=== PATIENT | female | born 1970 | race Caucasian/White ===

== ENCOUNTER → 2017-07-23 19:34 | Outpatient (CLI) | payer BC | END | disposition home or self-care (01) | LOC: D.SLEEP 19:34 | DX: G47.33 Obstructive sleep apnea (adult) (pediatric) (principal) ==

== ENCOUNTER 2019-08-12 18:22 | Emergency (ER) | payer BC ==
[~2019-08-12] VITALS: Ht 160 cm; Wt 76.4 kg
[2019-08-12 19:54] VITALS: Ht 160 cm; Wt 76.4 kg
[2019-08-12] MEDS ORDERED: ROBAXIN500 MG PO (19:56)
[2019-08-12] MEDS ORDERED: ULTRAM50 MG PO (19:56)
[2019-08-12] MEDS ORDERED: NEURONTIN 300300 MG PO (19:57)
[2019-08-12] MEDS ORDERED: ZOCOR20 MG PO (19:57)
[2019-08-12] MEDS ORDERED: CELEXA40 MG PO (19:57)
[2019-08-12 20:46] LABS: APPEARANCE CLEAR (CLEAR); COLOR STRAW (YELLOW); SPECIFIC GRAVITY 1.005 (1.005-1.020)
[2019-08-12 20:47] LABS: BILIRUBIN NEGATIVE (NEGATIVE); GLUCOSE NEGATIVE (NEGATIVE); KETONE NEGATIVE (NEGATIVE); NITRITE NEGATIVE (NEGATIVE); PROTEIN NEGATIVE (NEGATIVE); UROBILINOGEN NORMAL (NORMAL)
[2019-08-12 20:49] LABS: HCG URINE NEGATIVE (NEGATIVE)
[2019-08-12 21:10] LABS: BASOPHILS 0.4 % (0-2); EOSINOPHILS 1.9 % (0-7); HEMATOCRIT 41.3 % (36.0-48.0); HEMOGLOBIN 13.6 g/dL (12-16); IMMATURE GRANULOCYTES 0.6 % (0-5); LYMPHOCYTES 29.5 % (15-50); MCH 30.8 pg (26.0-34.0); MCHC 32.9 g/dL (31.0-37.0); MCV 93.7 fL (80.0-100.0); NEUTROPHILS 60.6 % (40-80); PLATELET COUNT 262 10x3/uL (130-400); RBC 4.41 10x6/uL (4.00-5.40); RDW 13.6 % (11.5-14.5); WBC 11.2 10x3/uL (4.8-10.8)
[2019-08-12 21:47] LABS: ALBUMIN 3.7 g/dL (3.4-5.0); ANION GAP 11.3 mmol/L (8-16); BILIRUBIN - TOTAL 0.43 mg/dL (0.2-1.3); CALCIUM 8.6 mg/dL (8.5-10.1); CARBON DIOXIDE 29.7 mmol/L (21.0-32.0); PROTEIN - SERUM 6.7 g/dL (6.4-8.2)
[2019-08-12 23:55] VITALS: BP 111/78
== END 2019-08-13 02:07 | disposition short-term general hospital (02) ==
LOC: D.ER 18:22
PROVIDERS: Family Medicine
DX: R51 Headache (principal); M54.2 Cervicalgia; R42 Dizziness and giddiness